=== PATIENT | male | born 1965 | race Hispanic/Latino ===

== ENCOUNTER 2022-08-08 14:59 | Outpatient (CLI) | payer MEDICAID, SELFPAY ==
--- NOTE | 2022-08-08 | ECG_ITS ---
Measurements Intervals [place] Rate: 80 P: 68 IA: 147 QRS: 15 QRSD: 98 T: 31 QT: 360 QTc: 417 Interpretive Statements SINUS RHYTHM EARLY PRECORDIAL R/S TRANSITION BORDERLINE ECG NO PREVIOUS ECG AVAILABLE FOR COMPARISON Electronically Signed On 08-08-2022 15:46:16 CDT by Layton Love D.O.
--- NOTE | ~2022-08-08 | XR_ITS ---
EXAMINATION: XR chest 2V 08/08/2022 15:27 INDICATION: Chest pain and shortness of breath PROCEDURE: 2 view chest COMPARISON: 07/27/2012 FINDINGS: The lungs are clear. The cardiomediastinal silhouette is within normal limits. There are no pleural effusions. There is no pneumothorax suspected. IMPRESSION: 1: NO ACUTE CARDIOPULMONARY DISEASE. Reviewed, dictated and finalized at location B.
== END 2022-08-08 15:00 | disposition home or self-care (01) ==
LOC: ANHIMG 15:04
PROVIDERS: PCP Physician Assistant; Visit Provider Physician Assistant
DX: R07.9 Chest pain, unspecified (principal)
CPT/HCPCS: 71046; 93005

== ENCOUNTER 2022-10-04 15:49 | Outpatient (CLI) | payer MEDICAID, SELFPAY ==
--- NOTE | ~2022-10-04 | XR_ITS ---
XR shoulder RT min 2V DATE: 10/04/2022 16:08 INDICATION: Right shoulder pain after fall one year ago TECHNIQUE: 4 views COMPARISON: None FINDINGS: There is degenerative spurring of the right acromioclavicular joint. No fracture or disloca tion, periosteal reaction or bone destruction or significant abnormal soft tissue calcification of th e right shoulder is detected. There is degenerative spurring and mild dextro scoliosis of the thoracic spine. IMPRESSION: Degenerative change at right acromioclavicular joint Reviewed, dictated and finalized at location A.
== END 2022-10-04 15:50 | disposition home or self-care (01) ==
LOC: ANHIMG 15:53
PROVIDERS: PCP Physician Assistant; Visit Provider Physician Assistant
DX: M19.011 Primary osteoarthritis, right shoulder (principal)
CPT/HCPCS: 73030

== ENCOUNTER 2022-11-14 07:32 | Outpatient (CLI) | payer MEDICAID, SELFPAY ==
--- NOTE | 2022-11-14 07:35 | EST_ITS ---
Patient Info Name: Norberto Fontenot Age: 56 years : 1965 Gender: Male Ht: 69 in Wt: 192 lbs BSA: 2.08 m2 Exam Date: 11/14/2022 8:15 AM Exam Location: [facility] Stress Patient Status: Outpatient Admit Date: 11/14/2022 Staff Ordering Physician: Layton Love DO Attending Provider: Layton Love DO Exercise Technologist: Yani Orr RDCS Exercise Physician: Layton Love DO Exam Type: CA stress test treadmill Study Info Indications R07.9 - Chest pain, unspecified A treadmill exercise stress test was performed. Summary 1. 1. Negative Ranjeet exercise stress test for ischemic ST changes by ECG criteria. 2. 2. Good functional capacity, achieving 12 METs of workload. 3. 3. Appropriate HR response to exercise. 4. 4. Appropriate HR recovery at 1 minute post exercise. 5. 5. No imaging with stress testing. 6. 6. Patient informed of the above results. Protocol: Ranjeet Stress ECG Details Stage: REST Duration (min): 1 min : 10 sec Speed (mph): 0.0 Grade (%): 0 HR (bpm): 76 SBP (mmHg): 115 DBP (mmHg): 76 METS: --- Stage: REST Duration (min): 5 min : 8 sec Speed (mph): 0.0 Grade (%): 0 HR (bpm): 77 SBP (mmHg): 115 DBP (mmHg): 76 METS: --- Stage: STAGE 1 Duration (min): 1 min : 0 sec Speed (mph): 1.7 Grade (%): 10 HR (bpm): 91 SBP (mmHg): 115 DBP (mmHg): 76 METS: --- Stage: STAGE 1 Duration (min): 2 min : 0 sec Speed (mph): 1.7 Grade (%): 10 HR (bpm): 94 SBP (mmHg): 115 DBP (mmHg): 76 METS: --- Stage: STAGE 1 Duration (min): 3 min : 0 sec Speed (mph): 1.7 Grade (%): 10 HR (bpm): 98 SBP (mmHg): 107 DBP (mmHg): 64 METS: --- Stage: STAGE 2 Duration (min): 1 min : 0 sec Speed (mph): 2.5 Grade (%): 12 HR (bpm): 102 SBP (mmHg): 107 DBP (mmHg): 64 METS: --- Stage: STAGE 2 Duration (min): 2 min : 0 sec Speed (mph): 2.5 Grade (%): 12 HR (bpm): 104 SBP (mmHg): 125 DBP (mmHg): 52 METS: --- Stage: STAGE 2 Duration (min): 3 min : 0 sec Speed (mph): 2.5 Grade (%): 12 HR (bpm): 109 SBP (mmHg): 125 DBP (mmHg): 52 METS: --- Stage: STAGE 3 Duration (min): 1 min : 0 sec Speed (mph): 3.4 Grade (%): 14 HR (bpm): 117 SBP (mmHg): 132 DBP (mmHg): 56 METS: --- Stage: STAGE 3 Duration (min): 2 min : 0 sec Speed (mph): 3.4 Grade (%): 14 HR (bpm): 121 SBP (mmHg): 132 DBP (mmHg): 56 METS: --- Stage: STAGE 3 Duration (min): 3 min : 0 sec Speed (mph): 3.4 Grade (%): 14 HR (bpm): 126 SBP (mmHg): 157 DBP (mmHg): 58 METS: --- Stage: STAGE 4 Duration (min): 1 min : 0 sec Speed (mph): 4.2 Grade (%): 16 HR (bpm): 141 SBP (mmHg): 157 DBP (mmHg): 58 METS: --- Stage: STAGE 4 Duration (min): 1 min : 1 sec Speed (mph): 4.2 Grade (%): 16 HR (bpm): 141 SBP (mmHg): 157 DBP (mmHg): 58 METS: --- Stage: RECOVERY Dura
--- NOTE | 2022-11-14 07:35 | ECHO_ITS ---
Patient Info Name: Norberto Fontenot Age: 56 years : 1965 Gender: Male Ht: 69 in Wt: 192 lbs BSA: 2.08 m2 HR: 69 bpm BP: 115 / 76 mmHg Technical Quality: Good Exam Date: 11/14/2022 7:51 AM Exam Location: [facility] Patient Status: Outpatient Admit Date: 11/14/2022 Staff Ordering Physician: Layton Love DO Stretcher Drier Operator: Yani Orr RDCS Attending Provider: Layton Love DO Referring Physician: Ivan DURHAM; Exam Type: CA echo doppler color flow Study Info Indications R06.09 - Other forms of dyspnea Complete two-dimensional, color flow and Doppler transthoracic echocardiogram is performed. Summary 1. Complete two-dimensional, color flow and Doppler transthoracic echocardiogram is performed. 2. Left ventricular chamber dimension is normal. 3. Left ventricular systolic function is normal, estimated at 55-60%. 4. The left ventricular diastolic function is normal. 5. E/e' 6 is not elevated. 6. Global longitudinal strain is abnormal at -15.7%. 7. Left atrial chamber dimension is mildly enlarged. 8. No pulmonary hypertension, estimated pulmonary arterial systolic pressure is 23 mmHg. Left Ventricle E/e' 6 is not elevated. Global longitudinal strain is abnormal at -15.7%. Left ventricular chamber dimension is normal. Left ventricular systolic function is normal, estimated at 55-60%. The left ventricular diastolic function is normal. Right Ventricle Right ventricular chamber dimension is normal. Right ventricular systolic function is normal. Left Atria Left atrial chamber dimension is mildly enlarged. Right Atria Right atrial chamber dimension is normal. Aortic Valve The aortic valve is trileaflet. There is no aortic valve stenosis. There is no aortic valve regurgitation. Pulmonic Valve There is no pulmonic regurgitation. Mitral Valve There is no mitral valve stenosis. There is no mitral valve regurgitation. Tricuspid Valve There is no tricuspid valve regurgitation. No pulmonary hypertension, estimated pulmonary arterial systolic pressure is 23 mmHg. Pericardium/Pleural There is no pericardial effusion. Inferior Vena Cava Normal inferior vena cava with >50% collapse upon inspiration consistent with normal right atrial pressure, 5 mmHg. Aorta The aortic root size at the sinus of Valsalva is normal. Left Ventricular Outflow Tract Name Value Normal LVOT 2D LVOT Diameter 2.1 cm LVOT Doppler LVOT Peak Gradient 3 mmHg LVOT Mean Gradient 2 mmHg LVOT VTI 18 cm LVOT VTI/AV VTI Ratio 0.9 LVOT Stroke Volume 64 ml LVOT CO 4.6 l/min LVOT CI 2.2 l/min/m2 Pulmonic Valve Name Value Normal RVOT Doppler RVOT Peak Gradient 2 mmHg PV Doppler
== END 2022-11-14 07:33 | disposition home or self-care (01) ==
LOC: ANHCARD 07:33
PROVIDERS: PCP Physician Assistant; Visit Provider Internal Medicine Cardiovascular Disease
DX: R07.9 Chest pain, unspecified (principal)
CPT/HCPCS: 93017; 93306

== ENCOUNTER 2023-02-15 16:00 | Emergency (ER) | payer MEDICAID, SELFPAY ==
--- NOTE | ~2023-02-15 | XR_ITS ---
EXAM: XR shoulder RT min 2V DATE: 02/15/2023 16:54 HISTORY: shoulder pain AFTER MOVING FURNITURE . COMPARISON: 10/04/2022. FINDINGS: Normal mineralization. No fracture or dislocation. No lytic or blastic lesion. Moderate AC joint and mild glenohumeral joint osteoarthritis. No erosion or periosteal change. Soft tissues with in normal limits. IMPRESSION: No acute osseous finding in the right shoulder. Reviewed, dictated and finalized at location K. E SHOW MANAGER
[2023-02-15 16:02] VITALS: BP 165/84; PULSE 85; RESP 18; TEMP 36.2; O2SAT 100
[2023-02-15 16:13] VITALS: BP 145/81; PULSE 89; RESP 18; O2SAT 95
--- NOTE | 2023-02-15 17:28 | ED.UPPEXIN ---
HPI - Extremity Injury (Upper) General Chief Complaint: Extremity Injury, Upper Stated Complaint: right shoulder pain Time Seen by Provider: 02/15/23 17:07 Source: patient Mode of arrival: ambulatory Limitations: no limitations History of Present Illness HPI narrative: This is a 57 year old male that presents to the ER for right shoulder pain after a lifting injury today. Reports he has been having trouble with his right shoulder over the last several months. Recently underwent physical therapy. His shoulder was a little more sore than usual when he woke up today. He was moving some furniture and felt a pop in his shoulder. Reports decreased ROM due to pain. Denies numbness or weakness. Related Data Home Medications Medication Instructions Recorded Confirmed aspirin 81 mg tablet,delayed 81 mg PO DAILY 10/06/22 10/10/22 release atorvastatin 40 mg tablet 40 mg PO DAILY 10/06/22 10/10/22 blood sugar diagnostic ([facility] 10/06/22 10/10/22 Verio test strips) blood-glucose meter ([facility] 10/06/22 10/10/22 Verio Flex Meter) blood-glucose meter,continuous 10/06/22 10/10/22 (Dexcom G6 Animal Cop) empagliflozin 25 mg tablet 25 mg PO DAILY 10/06/22 10/10/22 (Jardiance) lancets 33 gauge ([facility]/06/[facility] 10/10/22 Plus Lancet) liraglutide 0.6 mg/0.1 mL (18 mg/3 0.6 mg subcut DAILY 10/06/22 10/10/22 mL) subcutaneous pen injector (Victoza 3-Soto) lisinopril 20 1 tablet PO DAILY 10/06/22 10/10/22 mg-hydrochlorothiazide 12.5 mg tablet testosterone cypionate 200 mg/mL 200 mg IM ONCE 10/06/22 10/10/22 intramuscular oil Allergies Allergy/AdvReac Type Severity Reaction Status Date / Time No Known Allergies Allergy Mild Verified 02/15/23 16:14 Review of Systems Review of Systems: CONSTITUTIONAL: Denies fever MUSCULOSKELETAL: Reports joint pain, and myalgia. NEUROLOGIC: Denies numbness, or weakness. All systems reviewed & are unremarkable except as noted in HPI and below PMFSH Past Medical History Medical History (Updated 02/15/23 @ 17:29 by Meme Dunham PA-C) Allergy Backache Dyspnea Dysuria Erectile dysfunction High cholesterol Hyperlipidemia Kidney stone Multiple joint pain Noncompliance with treatment Persistent hematuria Phimosis Screening for malignant neoplasm of prostate Upper respiratory infection Urethritis Surgical History Surgical History H/O circumcision Social History Social History Social History: Lives with and children Smoking status: Former smoker Tobacco type: cigarettes Education: High School Diploma/GED Occupation/Education: occupation Additional occupation/education comments: Cook Gender identity (if verbalized by the patient): Male Sexual Orientation (if Verbalized by the Patient): Straight or Heterosexual Exam Narrative: GENERAL: Well-appearing, well-nourished, and in no acute distress. HEAD: Normocephalic, atraumatic. EYES: EOMI. EXTREMITIES: Decreased active range of motion above 90 degrees due to pain. No edema or obvious deformity. Normal radial pulse. Normal sensation SKIN: Warm, dry, no rash. NEURO: No focal deficits. Alert and oriented x3. PSYCH: Normal mood and affect Course Course Emergency Course: Patient updated on workup and agrees with plan of care Vital Signs Vital signs: Vital Signs Temperature 97.2 F L 02/15/23 16:02 Pulse Rate 85 02/15/23 16:02 Respiratory Rate 18 02/15/23 16:02 Blood Pressure 165/84 H 02/15/23 16:02 Pulse Oximetry 100 02/15/23 16:02 Oxygen Delivery Room Air 02/15/23 16:02 Temperature 97.2 F L 02/15/23 16:02 Pulse Rate 89 02/15/23 16:13 Respiratory Rate 18 02/15/23 16:13 Blood Pressure 145/81 H 02/15/23 16:13 Pulse Oximetry 95 02/15/23 16:13 Oxygen Delivery Room Air 02/15/23 16:02 MDM - Extremity Injury (U
[2023-02-15] MEDS: ACETAMINOPHEN 500 MG TABLET 1000 MG PO (18:48)
[2023-02-15] MEDS: KETOROLAC 30 MG/ML VIAL (*BKC) IM (18:49)
[2023-02-15 18:56] VITALS: BP 142/89; PULSE 82; O2SAT 97
== END 2023-02-15 18:55 | disposition home or self-care (01) ==
PROVIDERS: Emergency Provider Physician Assistant; PCP Physician Assistant
DX: S43.401A Unspecified sprain of right shoulder joint, initial encounter (principal); E78.00 Pure hypercholesterolemia, unspecified; Z87.442 Personal history of urinary calculi; Z87.891 Personal history of nicotine dependence; Z79.82 Long term (current) use of aspirin; Z79.85 Long-term (current) use of injectable non-insulin antidiabetic drugs; X50.0XXA Overexertion from strenuous movement or load, initial encounter
CPT/HCPCS: 73030; 96372; 99283; A4565; A9270; J1885

== ENCOUNTER 2023-07-11 15:25 | Outpatient (CLI) | payer OTHER, SELFPAY ==
--- NOTE | 2023-07-11 | ECG_ITS ---
SEE SCANNED COPY FOR CONFIRMED REPORT MTDD
--- NOTE | ~2023-07-11 | XR_ITS ---
EXAMINATION: XR chest 2V 07/11/2023 15:55 INDICATION: Preprocedural examination. PROCEDURE: 2 view chest COMPARISON: Chest x-ray report dated 08/08/2022 FINDINGS: The lungs are clear. The cardiomediastinal silhouette is within normal limits. There are no pleural effusions. There is no pneumothorax suspected. IMPRESSION: 1: NO ACUTE CARDIOPULMONARY DISEASE. Reviewed, dictated and finalized at location B.
== END 2023-07-11 15:26 | disposition home or self-care (01) ==
PROVIDERS: PCP Physician Assistant; Visit Provider Physician Assistant
DX: Z01.818 Encounter for other preprocedural examination (principal)
CPT/HCPCS: 71046; 93005

== ENCOUNTER 2023-11-06 06:22 | Emergency (ER) | payer OTHER, SELFPAY ==
--- NOTE | ~2023-11-06 | CT_ITS ---
EXAMINATION: CTA chest DATE: 11/06/2023 07:34 INDICATION: Dyspnea. TECHNIQUE: Computed tomographic angiography (CTA) of the chest was performed with 100 mL Omnipaque-35 0 intravenous contrast. Automated exposure control and iterative reconstruction technique were employ ed. The dose-length product was 767.44 mGy-cm. Maximum intensity projection 3D-reconstructions of the aorta and other arteries were constructed by the technologist on a separate workstation. COMPARISON: Chest 2 views 11/06/2023 FINDINGS: There are airspace and groundglass opacities in left lower lobe, consistent with pneumonia. There is mild atelectasis in right lower lobe. No pleural effusion. The heart size is normal. No per icardial effusion. There is no pulmonary embolus. Thoracic aorta is normal. There is mild left hilar lymphadenopathy, likely reactive. There is a 5.0 cm cyst in right kidney. There is 6 mm and 13 mm sto tanmay in right kidney. There is mild thoracic spondylosis. IMPRESSION: 1. Left lower lobe pneumonia. 2. Mild left hilar lymphadenopathy, likely reactive. 3. Normal thoracic aorta. Reviewed, dictated and finalized at location A.
--- NOTE | ~2023-11-06 | XR_ITS ---
EXAMINATION: XR chest 2V DATE: 11/06/2023 06:51 INDICATION: Shortness of breath. Chest pain with breathing. TECHNIQUE: Frontal and lateral views of the chest were obtained. COMPARISON: Chest 2 views 07/11/2023 FINDINGS: There are left lower lobe airspace opacities. No pleural effusion or pneumothorax. The hear t size is normal. There is an old healed left rib fracture. IMPRESSION: 1. Left lower lobe airspace opacities, consistent with pneumonia. Reviewed, dictated and finalized at location A.
[2023-11-06 06:29] VITALS: BP 131/74; PULSE 88; RESP 19; TEMP 36.7; O2SAT 94
[2023-11-06 06:35] VITALS: PULSE 83; RESP 22; O2SAT 100
[2023-11-06 06:36] VITALS: O2SAT 93
--- NOTE | 2023-11-06 06:37 | PC.NURSE ---
Per patient his surgery was done by Dr.Benjamin Torres with [facility].
[2023-11-06 07:10] LABS: Basophils Percent Auto 0.4 % (0.2-1.2); Eosinophils Absolute Auto 0.1 K/mm3 (0-0.3); Eosinophils Percent Auto 1.4 % (0-4.4); Hematocrit 38.2 % (42.0-52.0); Hemoglobin 12.8 g/dL (14.0-18.0); Immature Granulocyte Absolute 0.03 K/mm3 (0.00-0.031); Immature Granulocyte Percent A 0.3 % (0-0.5); Lymphocytes Absolute Auto 1.23 K/mm3 (0.9-3.2); Mean Corpuscular HGB Conc 33.5 g/dl (32-36); Mean Corpuscular Hemoglobin 29.9 pg (26-34); Mean Corpuscular Volume 89.3 fl (80-100); Mean Platelet Volume 10.2 fl (7.4-10.4); Monocytes Absolute Auto 0.9 K/mm3 (0.1-0.6); Monocytes Percent Auto 9.8 % (2.6-8.5); Neutrophils Absolute Auto 7.1 K/mm3 (1.3-6.7); Neutrophils Percent Auto 75.1 % (45.5-73.1); Platelet Count Result 279 k/mm3 (150-375); Red Blood Count 4.28 M/mm3 (4.6-6.20); Red Cell Distribution Width 12.8 % (11.5-14.5); White Blood Count 9.5 K/mm3 (4.5-10.0)
[2023-11-06 07:13] LABS: Alanine Aminotransferase 29 U/L (6-50); Alkaline Phosphatase 120 U/L (38-126); Anion Gap 13 mmol/L (4-12); Aspartate Amino Transferase 27 U/L (17-59); Bilirubin,Total 0.8 mg/dL (0.2-1.3); Blood Urea Nitrogen 16 mg/dL (9-20); Calcium 9.1 mg/dL (8.4-10.2); Carbon Dioxide 26 mmol/L (22-30); Chloride 98 mmol/L (98-107); Estimated CRCL calculation 81 ml/min; Estimated Glomerular Filt Rate > 60; Glucose 154 mg/dL (65-110); Potassium 4.3 mmol/L (3.4-5.0); Sodium 137 mmol/L (137-145)
[2023-11-06 07:38] LABS: Influenza A QL RT-PCR Negative (Negative); Influenza B QL RT-PCR Negative (Negative); RSV RNA, RT-PCR Negative (Negative); SARS-CoV-2 RNA PCR Negative (Negative)
[2023-11-06 07:41] VITALS: BP 142/77; PULSE 85; RESP 15; O2SAT 98
--- NOTE | 2023-11-06 07:49 | ED.SOB ---
HPI - SOB/Dyspnea General Chief Complaint: Shortness of Breath/Dyspnea Stated Complaint: shortness of breath Time Seen by Provider: 11/06/23 07:01 History of Present Illness HPI Narrative: Pt presents with SOB over last several days. Pt had surgery on right shoulder earlier this month. Pt has had chills and sweats for the last few days and felt warm but not sure if fever. Pt developed cough last day or so. Pt denies CP. Related Data Home Medications Medication Instructions Recorded Confirmed aspirin 81 mg tablet,delayed 81 mg PO DAILY 10/06/22 10/10/22 release atorvastatin 40 mg tablet 40 mg PO DAILY 10/06/22 10/10/22 blood sugar diagnostic ([facility] 10/06/22 10/10/22 Verio test strips) [facility] 10/[facility] 10/10/22 Verio Flex Meter) blood-glucose meter,continuous 10/06/22 10/10/22 (Dexcom G6 Senior Application Software Engineer) empagliflozin 25 mg tablet 25 mg PO DAILY 10/06/22 10/10/22 (Jardiance) lancets 33 gauge ([facility] 10/06/22 10/10/22 Plus Lancet) liraglutide 0.6 mg/0.1 mL (18 mg/3 0.6 mg subcut DAILY 10/06/22 10/10/22 mL) subcutaneous pen injector (Victoza 3-Soto) lisinopril 20 1 tablet PO DAILY 10/06/22 10/10/22 mg-hydrochlorothiazide 12.5 mg tablet testosterone cypionate 200 mg/mL 200 mg IM ONCE 10/06/22 10/10/22 intramuscular oil Allergies Allergy/AdvReac Type Severity Reaction Status Date / Time No Known Allergies Allergy Mild Verified 11/06/23 06:33 Review of Systems Review of Systems: All systems reviewed & are unremarkable except as noted in HPI and below PMFSH Past Medical History Medical History (Updated 11/06/23 @ 08:24 by Mimi Bolton III, DO) Allergy Backache Dyspnea Dysuria Erectile dysfunction High cholesterol Hyperlipidemia Kidney stone Multiple joint pain Noncompliance with treatment Persistent hematuria Phimosis Screening for malignant neoplasm of prostate Upper respiratory infection Urethritis Surgical History Surgical History H/O circumcision Social History Social History Social History: Lives with and children Smoking status: Former smoker Tobacco type: cigarettes Education: High School Diploma/GED Occupation/Education: occupation Additional occupation/education comments: [employer] Gender identity (if verbalized by the patient): Male Sexual Orientation (if Verbalized by the Patient): Straight or Heterosexual Exam Const: General: healthy appearing and no acute distress Nutritional Appearance: well nourished Orientation/consciousness: patient oriented x3 Limitations: no limitations HENMT: Head: normal to inspection Mouth: Yes Normal oral and palatal mucosa present Throat: posterior oropharynx normal Eyes: Conjunctivae: conjunctivae normal Pupils: Equal, round and reactive pupils present EOM: EOMs intact bilaterally Direct Ophthalmoscopy: no photophobia Neck: Neck: normal visual inspection and no lymphadenopathy Chest: Chest palpation & inspection: normal inspection of the chest Resp: Effort & Inspection: normal respiratory effort Auscultation: clear to auscultation bilaterally Cardio: Rate: regular rate Rhythm: regular rhythm GI: GI Palp: Yes Soft to palpation and No Tenderness to palpation present (GI) Auscultation: normal bowel sounds Back/Spine/Pelvis: Back: no CVA tenderness Skin: General skin exam: normal color Rashes: no rashes Wounds: no wounds Neuro: General: patient oriented x3, moves all extremities, no meningeal signs, no focal motor deficits and CN's II-XI intact bilaterally Cranial nerves: Yes Nystagmus not present Speech: normal speech Extrem: General: normal to inspection and no clubbing, cyanosis or edema Psych: Mental Status: mental status grossly normal Affect: normal affect Attitude: cooperative Course Vital Signs Vital signs: Vital Signs Te
[2023-11-06] MEDS: AZITHROMYCIN 500 MG/NS 250 ML 500 MG/250 ML BAG 250 MG IVPB (07:58)
[2023-11-06 09:16] VITALS: BP 124/79; PULSE 82; RESP 24; TEMP 36.6; O2SAT 96
== END 2023-11-06 09:18 | disposition home or self-care (01) ==
PROVIDERS: Emergency Medicine; Emergency Provider Emergency Medicine; PCP Physician Assistant
DX: J18.9 Pneumonia, unspecified organism (principal); Z20.822 Contact with and (suspected) exposure to COVID-19; E78.00 Pure hypercholesterolemia, unspecified; Z87.442 Personal history of urinary calculi; Z87.891 Personal history of nicotine dependence; Z79.85 Long-term (current) use of injectable non-insulin antidiabetic drugs; Z79.82 Long term (current) use of aspirin; Z79.84 Long term (current) use of oral hypoglycemic drugs
CPT/HCPCS: 36415; 71046; 71275; 80053; 85025; 87040; 87637; 96365; 96367; 99284; J0456; J0696; Q9967

== ENCOUNTER 2024-03-06 14:45 | Outpatient (RCR) | payer OTHER, SELFPAY ==
[2023-12-15 14:35] VITALS: BP_SYST 80
--- NOTE | 2023-12-15 15:33 | OPREHPOC ---
Outpatient Therapy Plan of Care This is a Multidisciplinary Plan of Care that may contain components documented by all disciplines (PT, OT, and ST.) PT Problem 1 PT Problem #1 Knowledge Deficit PT Goal 1 Goal / Goal Update * indep with HEP * correct position of shoulder with exercises Target Visit 10 PT Problem 2 PT Problem #2 Pain PT Goal 1 Goal / Goal Update decrease pain of R shoulder, to improve use of arm 1* pain rating at worst of 4/10 2* self assessment Quick Dash rating of 60% limitation in activity level 3* pt report sleeping tolerance of 2 hours at time Target Visit 10 PT Problem 3 PT Problem #3 Impaired Strength PT Goal 1 Goal / Goal Update increase strength of R shoulder, to improve use of R arm for self care and light home activities: in standing x 5 reps: 1* flexion to 100' 2* abduction to 100' 3* ER- reach to back of head, palm to back of head 4* IR- reach behind back, palm to waist Target Visit 10
--- NOTE | 2023-12-15 15:34 | PTOPEVAL1 ---
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; owns the restraunt, went in to check in on things only; from -- doing pendulum and elbow, hand exercises had PT before surgery for shoulder and it was not getting any better- so had surgery; having problems with sleeping due to shoulder pain is not using his R arm, been resting it in the sling until few days ago; Reported Pain Level Pain Score Self Report Additional Pain Score Comments pain range in the past few days -11/03; sore, sharp and pain over mid deltoid, anterior and posterior shoulder; with sleeping: about every 30 minutes wake up; problems getting comfortable to fall asleep; is sleeping in the bed- initially in recliner; decrease pain: change positions, use ice PRN; taking over the counter meds; Assessment PT Clinical Summary Norberto is s/p R rotator cuff surgery with bicep tendon repair on 10-26-23. He is R hand dominant and the sling was used until few days ago. He has problems with sleeping and at this last dr randhawa, sling was removed and he received orders to start therapy. Quick Dash self assessment rating of 75% limitation in activity level. 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 With the evaluation, he has decreased strength and ROM of R shoulder; elbow, wrist and hand ranges are WNL and not painful. Skilled PT services are indicated for modalities to decrease pain, therapeutic exercises per protocol--phase 2 NO strengthening of shoulder- see order; education for posture and HEP. Plan of Care Interventions Electrical Stimulation,Hot Pack/Cold Pack,Manual Therapy,Neuro Re-education,Patient/Caregiver Education,Therapeutic Activities,Therapeutic Exercise,Ultrasound,Other Other Interventions taping PT Services Indicated Yes Treatment Frequency and 2x/wk for 10 visits Duration These treatments will address the objective and functional deficits as defined above. The patient will be advanced safely and appropriately in order for the patient to progress towards his/her prior level of function. Additional exercises will be introduced and as well as a comprehensive home exercise program upon discharge, if needed, ?to ensure carryover of functional gains achieved in the clinic. This treatment plan has been reviewed and agreement upon by the patient.
[2024-01-16 15:25] VITALS: BP_SYST 90
--- NOTE | 2024-01-16 16:21 | OPREHPOC ---
Outpatient Therapy Plan of Care This is a Multidisciplinary Plan of Care that may contain components documented by all disciplines (PT, OT, and ST.) PT Problem 1 PT Problem #1 Knowledge Deficit PT Goal 1 Goal / Goal Update * indep with HEP * correct position of shoulder with exercises Target Visit 10 Progress Met PT Goal 2 Goal / Goal Update 01-16-24 progress goals met continue to progress HEP and education Target Visit 20 PT Problem 2 PT Problem #2 Pain PT Goal 1 Goal / Goal Update decrease pain of R shoulder, to improve use of arm 1* pain rating at worst of 4/10 2* self assessment Quick Dash rating of 60% limitation in activity level 3* pt report sleeping tolerance of 2 hours at time Target Visit 10 Progress Met PT Goal 2 Goal / Goal Update 01-16-24 progress goals met; NEW goals: 1* pt report pain at worst of 2/10 with increased activity 2* pt report sleeping tolerance of 4 hours 3* self assessment with Quick DASH rating of 30% limitation in activity level Target Visit 20 PT Problem 3 PT Problem #3 Impaired Strength PT Goal 1 Goal / Goal Update increase strength of R shoulder, to improve use of R arm for self care and light home activities: in standing x 5 reps: 1* flexion to 100' 2* abduction to 100' 3* ER- reach to back of head, palm to back of head 4* IR- reach behind back, palm to waist Target Visit 10 Progress Partially Met PT Goal 2 Goal / Goal Update 01-16-24 progress goals 1,3 met; improved with others, but not achieved initiate strengthening when dr orders received in standing x 5 reps R UE: 1* shoulder flexion to 120' with 3# hand weight 2* elbow flexion/extension with 10# hand weight 3* bilateral UE lifting of box, waist/ floor height: 30# x 3 reps PT Problem 4 PT Problem #4 Impaired Range of Motion PT Goal 1 Goal / Goal Update increase R shoulder active ROM in standing, to improve use of R UE for home and work tasks: 1* flexion to 140' 2* abduction to 110' 3* IR- reach behind back, palm to above waist Target Visit 20
--- NOTE | 2024-01-16 16:21 | PTOPPROG ---
Assessment and note entered by Nirmala Pozo, PT Progress Report Assessment Status Progress Diagnosis R rotator cuff repair with open bicep repair ICD-10 Condition Codes (PT) M25.511,Z47.89 Onset 10-26-23 Subjective Information shoulder is much better--able to move my arm better; using arm with light home activities; return to light working, 4-5 hours for 4 days a week, went back about 2 weeks ago; has dr appointment beginning of January- either or ; PAIN: range in the past week; 0-2/10; sore over shoulder decrease pain: rest, hold arm, increase pain: using arm, reaching arm up, move arm quickly, stay in one position too long have not used ice- reinforced PRN use have not been taking any pain meds report sleeping tolerance of 2 hours at time; best position on L side with R arm on pillow Assessment PT Clinical Summary Norberto has received 10 PT sessions. He has improved in all areas since the initial eval: pain from 3-8/10 to 0-2/10; Self assessment with Quick DASH from 75% to 45% limitation in activity level; improved reported sleeping tolerance from 30 minutes to 2 hours at time; has returned to light work, 4-5 hours at time; R shoulder: AROM in standing /passive in supine: flexion 105/140'; abduction 85'/90'; active in standing: IR- reach behind back, fingers to sacrum ER- palm to back of head The goals have been partially achieved. Continue PT per orders. Await orders to begin strengthening at pt next dr appt. Plan of Care Interventions Electrical Stimulation,Hot Pack/Cold Pack,Manual Therapy,Neuro Re-education,Patient Education,Therapeutic Activities,Therapeutic Exercise,Ultrasound,Other Other Interventions taping PT Services Indicated Yes Treatment Frequency and 1-2x/wk for 10 visits Duration These treatments will address the objective and functional deficits as defined above. The patient will be advanced safely and appropriately in order for the patient to progress towards his/her prior level of function. Additional exercises will be introduced and as well as a comprehensive home exercise program upon discharge, if needed, ?to ensure carryover of functional gains achieved in the clinic. This treatment plan has been reviewed and agreement upon by the patient.
--- NOTE | 2024-02-05 15:38 | PCPTNOTE ---
Patient cancelled due to working out of town.
[2024-02-19 15:50] VITALS: BP_SYST 120
--- NOTE | 2024-02-19 16:29 | OPREHPOC ---
Outpatient Therapy Plan of Care This is a Multidisciplinary Plan of Care that may contain components documented by all disciplines (PT, OT, and ST.) PT Problem 1 PT Problem #1 Knowledge Deficit PT Goal 1 Goal / Goal Update * indep with HEP * correct position of shoulder with exercises Target Visit 10 Progress Met PT Goal 2 Goal / Goal Update 01-16-24 progress goals met continue to progress HEP and education --------- 02-19-24 progress goals met continue to progress Target Visit 27 PT Problem 2 PT Problem #2 Pain PT Goal 1 Goal / Goal Update decrease pain of R shoulder, to improve use of arm 1* pain rating at worst of 4/10 2* self assessment Quick Dash rating of 60% limitation in activity level 3* pt report sleeping tolerance of 2 hours at time Target Visit 10 Progress Met PT Goal 2 Goal / Goal Update 01-16-24 progress goals met; NEW goals: 1* pt report pain at worst of 2/10 with increased activity 2* pt report sleeping tolerance of 4 hours 3* self assessment with Quick DASH rating of 30% limitation in activity level --------- 02-19-24 progress goals met NEW GOALS: 1* pain rating at worst of 2/10 with strengthening progression Target Visit 27 PT Problem 3 PT Problem #3 Impaired Strength PT Goal 1 Goal / Goal Update increase strength of R shoulder, to improve use of R arm for self care and light home activities: in standing x 5 reps: 1* flexion to 100' 2* abduction to 100' 3* ER- reach to back of head, palm to back of head 4* IR- reach behind back, palm to waist Target Visit 10 Progress Partially Met PT Goal 2 Goal / Goal Update 01-16-24 progress goals 1,3 met; improved with others, but not achieved initiate strengthening when dr orders received in standing x 5 reps R UE: 1* shoulder flexion to 90' with 3# hand weight 2* elbow flexion/extension with 10# hand weight 3* bilateral UE lifting of box, waist/ floor height: 30# x 3 reps --------- 02-19-24 progress goals met NEW GOALS: R shoulder to 90', with 5 reps, hand weight: 1* flexion with 5# 2* scaption with 4# 3* bilateral UE box lift floor/waist height 40# x 3 reps Target Visit 27 PT Problem 4 PT Problem #4 Impaired Range of Motion PT Goal 1 Goal / Goal Update increase R shoulder active ROM in standing, to improve use of R UE for home and work tasks: 1* flexion to 140' 2* abduction to 110' 3* IR- reach behind back, palm to above waist Target Visit 20 Progress Not Met PT Goal 2 Goal / Goal Update --------- 02-19-24 progress goals not met continue towards Target Visit 27
--- NOTE | 2024-02-19 16:29 | PTOPPROG ---
Assessment and note entered by Nirmala Pozo, PT Progress Report Assessment Status progress Diagnosis R rotator cuff repair with open bicep repair ICD-10 Condition Codes (PT) M25.511,Z47.89 Onset 10-26-23 Subjective Information shoulder is better, but still need to get stronger have been doing the exercises at home; still having problems reaching behind his back, problems lifting coffee pot and pouring coffee. PAIN: range in the past few days 0-2/10; tight and sore increase pain: reaching behind back and out to the side decrease pain: rest, not taking any pain meds; is able to sleep 3-4 hours at time Assessment PT Clinical Summary Norberto has received a total of 19 PT sessions. Compared to the last reeval: pain decreased now to 0-2/10; reported sleeping tolerance improved to 3-4 hours at time; self assessment Quick DASH rating from 45 to 27% limitation in activity level ROM of R shoulder: active/passive: flexion 120'/ 155'; abduction 85'/ 120' standing active IR- reach behind back, palm to sacrum; ER- reach palm to back of head most pain with IR and abduction motions. Strength with hand weight x 5 reps: flexion to 90' with 4#; scaption to 90' with 3#; Bilateral UE box lift waist/floor height: 35# with good body mechanics. The goals were partially met. Continue PT to further increase strength of R shoulder for return to full work and home tasks. Plan of Care Interventions Electrical Stimulation,Hot Pack/Cold Pack,Manual Therapy,Neuro Re-education,Patient Education,Therapeutic Activities,Therapeutic Exercise,Ultrasound,Other Other Interventions taping PT Services Indicated Yes Treatment Frequency and 1-2x/wk for 8 visits Duration These treatments will address the objective and functional deficits as defined above. The patient will be advanced safely and appropriately in order for the patient to progress towards his/her prior level of function. Additional exercises will be introduced and as well as a comprehensive home exercise program upon discharge, if needed, ?to ensure carryover of functional gains achieved in the clinic. This treatment plan has been reviewed and agreement upon by the patient.
--- NOTE | 2024-02-19 16:31 | PCPTNOTE ---
pt was 20 min late for today reeval appt.
--- NOTE | 2024-03-07 16:52 | PCPTNOTE ---
Pt called to cancel his appointment today due to having too much to do.
--- NOTE | 2024-03-11 12:33 | PCPTNOTE ---
Continue PT treatment with new V#[id number].
== END 2024-03-11 11:09 | disposition home or self-care (01) ==
LOC: ANHPT 14:45
PROVIDERS: PCP Physician Assistant
DX: Z47.89 Encounter for other orthopedic aftercare (principal); M25.511 Pain in right shoulder
CPT/HCPCS: 97014; 97110; 97140; 97161; 97530; G0283

== ENCOUNTER 2024-04-01 13:15 | Outpatient (RCR) | payer OTHER, SELFPAY ==
[2024-03-11 11:09] VITALS: BP_SYST 120
--- NOTE | 2024-03-11 12:35 | PCPTNOTE ---
PT treatment is continued from previous V#[id number].
--- NOTE | 2024-03-18 16:06 | PCPTNOTE ---
Pt no showed visit today attempted to leave message but his phone does not take messages.
--- NOTE | 2024-03-28 16:24 | PCPTNOTE ---
Pt no call no showed his appointment today
[2024-04-01 13:03] VITALS: BP_SYST 125
--- NOTE | 2024-04-01 13:52 | OPREHPOC ---
Outpatient Therapy Plan of Care This is a Multidisciplinary Plan of Care that may contain components documented by all disciplines (PT, OT, and ST.) PT Problem 1 PT Problem #1 Knowledge Deficit PT Goal 1 Goal / Goal Update * indep with HEP * correct position of shoulder with exercises Target Visit 10 Progress Met PT Goal 2 Goal / Goal Update 01-16-24 progress goals met continue to progress HEP and education --------- 02-19-24 progress goals met continue to progress Target Visit 27 PT Problem 2 PT Problem #2 Pain PT Goal 1 Goal / Goal Update decrease pain of R shoulder, to improve use of arm 1* pain rating at worst of 4/10 2* self assessment Quick Dash rating of 60% limitation in activity level 3* pt report sleeping tolerance of 2 hours at time Target Visit 10 Progress Met PT Goal 2 Goal / Goal Update 01-16-24 progress goals met; NEW goals: 1* pt report pain at worst of 2/10 with increased activity 2* pt report sleeping tolerance of 4 hours 3* self assessment with Quick DASH rating of 30% limitation in activity level --------- 02-19-24 progress goals met NEW GOALS: 1* pain rating at worst of 2/10 with strengthening progression Target Visit 27 Progress Met PT Problem 3 PT Problem #3 Impaired Strength PT Goal 1 Goal / Goal Update increase strength of R shoulder, to improve use of R arm for self care and light home activities: in standing x 5 reps: 1* flexion to 100' 2* abduction to 100' 3* ER- reach to back of head, palm to back of head 4* IR- reach behind back, palm to waist Target Visit 10 Progress Met PT Goal 2 Goal / Goal Update 01-16-24 progress goals 1,3 met; improved with others, but not achieved initiate strengthening when dr orders received in standing x 5 reps R UE: 1* shoulder flexion to 90' with 3# hand weight 2* elbow flexion/extension with 10# hand weight 3* bilateral UE lifting of box, waist/ floor height: 30# x 3 reps --------- 02-19-24 progress goals met NEW GOALS: R shoulder to 90', with 5 reps, hand weight: 1* flexion with 5# 2* scaption with 4# 3* bilateral UE box lift floor/waist height 40# x 3 reps Target Visit 27 Progress Met PT Problem 4 PT Problem #4 Impaired Range of Motion PT Goal 1 Goal / Goal Update increase R shoulder active ROM in standing, to improve use of R UE for home and work tasks: 1* flexion to 140' 2* abduction to 110' 3* IR- reach behind back, palm to above waist Target Visit 20 Progress Met PT Goal 2 Goal / Goal Update --------- 02-19-24 progress goals not met continue towards Target Visit 27 Progress Met
--- NOTE | 2024-04-01 13:52 | PTOPDC ---
Assessment and note entered by Valeriy Perera, PT Evaluation Information Assessment Status Discharge Diagnosis R rotator cuff repair with open bicep repair ICD-10 Condition Codes (PT) Pain in right shoulder M25.511,Encounter for other orthopedic aftercare Z47.89 Onset 10-26-23 Subjective Information Reports that overall he is doing better. Reports that he is not having much pain at all this point and is much less stiff. Reports that he is doing majority of the things he wants to and all of the things that he needs to. Still feels some tightness in maximal reach over head and behind back. Understands [facility] to address this. Reported Pain Level Pain Score 0: Self Report Assessment PT Clinical Summary Patient has met all goals for therapy at this time and is suitable for discharge to [facility]. Showing some minor end range scapular tightness but not restrictive of ADLs. 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 Plan of Care PT Services Indicated Yes
== END 2024-04-02 12:17 | disposition home or self-care (01) ==
LOC: ANHPT 13:15
PROVIDERS: PCP Physician Assistant
DX: M25.511 Pain in right shoulder (principal); Z47.89 Encounter for other orthopedic aftercare
CPT/HCPCS: 97110; 97140; 97530

== ENCOUNTER 2024-07-01 11:42 | Outpatient (CLI) | payer OTHER, SELFPAY ==
[2024-07-01 13:10] LABS: Thyroid Stimulating Hormone 0.936 uIU/mL (0.465-4.680)
--- OUTSIDE RECORDS SUMMARY | 2024-07-01 13:36 | XMS_ITS | Clinical Summary ---
Author Organization [facility] Address [address] [place] [address] Care Team Providers Care Operator Lights Name Role Phone Silke Kang Primary Care Provider + Allergies No known active allergies Medications empagliflozin (Jardiance) 25 mg tabletIndicatio ns:type 2 diabetes mellitus Take 1 tablet (25 mg total) by mouth every morning Active semaglutide (RYBELSUS) 7 mg tabletIndicatio ns:type 2 diabetes mellitus Take 1 tablet (7 mg total) by mouth manager recruiting before breakfast Active atorvastatin (LIPITOR) 40 mg tabletIndicatio ns:hyperlipidem ia Take 1 tablet (40 mg total) by mouth nightly 2 Active lisinopriL (PRINIVIL,ZESTR IL) 10 mg tabletIndicatio ns:hypertension Take 1 tablet (10 mg total) by mouth every morning Active metFORMIN (GLUCOPHAGE) 1,000 mg tabletIndicatio ns:type 2 diabetes mellitus Take 1 tablet (1,000 mg total) by mouth 2 (two) times a day Active docusate sodium (COLACE) 100 mg capsuleIndicati ons:constipatio n Take 1 capsule (100 mg total) by mouth 2 (two) times a day for 5 days 10 capsule 4 Active docusate sodium (COLACE) 100 mg capsuleIndicati ons:constipatio n Take 1 capsule (100 mg total) by mouth 2 (two) times a day as needed for constipation (while taking narcotics) 30 capsule 1 4 Active oxyCODONE (ROXICODONE) 5 mg immediate release tabletIndicatio ns:Pain Take 1 tablet every 4 hours as needed for pain 30 tablet 4 Active Active Problems Problem Noted Date Diagnosed Date Tear of right rotator cuff 06/19/2023 Encounters Date Type Department Care Team Description 04/22/2024 8:00 AM NEUROLOGY NURSE Office Visit [facility] Orthopaedic Surgery [address] [place] [address] Raymundo Torres MD Tear of right rotator cuff, unspecified tear extent, unspecified whether traumatic (Primary Dx) from Last 3 Months Surgical History Surgery Date Site/Laterality Comments CIRCUMCISION 03/27/2019 - 03/26/2020 Medical History Medical History Date Comments HTN (hypertension) HLD (hyperlipidemia) Diabetes mellitus (HCC) Social History Tobacco Use Types Packs/Day Years Used Date Smoking Tobacco: Former Cigarettes 0.5 29 1 985 - 2013 Passive Smoke Exposure: Never Smokeless Tobacco: Never Tobacco Cessation:Counseling Given: Not Answered AUDIT-C Answer Date Recorded Q1: How often do you have a drink containing alc ohol? 2-4 times a month 10/12/2023 Q2: How many drinks containi ng alcohol do you have on a typical day when you are drinking? 1 or 2 10/12/2023 Q3: How often do you have si x or more drinks on one occasion? Never 10/12/2023 Personal Safety Answer Date Recorded Have you ever been in or are you currently in a harmful physical or emotional relationship or is someone making you feel afraid or unsafe? Denies 10/26/2023 Sex and Gender Information Value Date Recorded Sex Assigned at Not on file Legal Sex Male 2:54 AM NEUROLOGY NURSE Gender Identity Not on file Sexual Orientation Not on file Obstetrics History Last Filed Vital Signs Vital Sign Reading Time Taken Comments Blood Pressure 112/69 10/26/2023 1:10 PM CDT Pulse 71 10/26/2023 1:10 PM CDT Temperature 36.6 C (97.9 F) 10/26/2023 12:12 PM CDT Respiratory Rate 20 10/26/2023 1:10 PM CDT Oxygen Saturation 93% 10/26/2023 1:10 PM CDT Inhaled Oxygen Concentration - - Weight 87.1 kg (192 lb) 03/04/2024 7:55 AM NEUROLOGY NURSE Height 167.6 cm (5' 6 ) 10/26/2023 8:30 AM CDT Body Mass Index 30.99 10/26/2023 8:30 AM CDT Plan of Treatment Health Maintenance Due Date Last Done Comments Colon Cancer Screening-Colonoscopy 1967 Depression Screening 1967 Hepatitis C Screening 1965 Prostate Cancer Screening-PSA 1967 Hepatitis B Screening 12/15/1985 Regular Well Visit/Exam 18-64 12/15/1985 Zoster Vaccine (2 of 2) 06/20/2022 04/25/2022 Covid-19 Vaccine ( season) 2023 03/16/2023, 04/25/2022, 03/23/2021, Additional history exists Influenza Vaccine (#1) 2023 , 02/14/2022, 01/04/2021, Additional history exists DTaP/Tdap/Td Vaccine (2 - Td or Tdap) 04/13/2026 04/13/2016 Pneumococcal vaccine <65 Aged Out 04/13/2016 No longer eligible based on patient's age to complete this topic Medical Devices Implanted Type Area Basic Acoustic Analyst Device Identifier Shelf Expiration Date Model / Serial / Lot [employer] Corkscrew Suturetape 5.5mm 14.7mm Bioabsorbable Full Thread 1.3mm Ar-1927bct - [id number] Implanted:Qty: 1 on 10/26/2023 by Raymundo Torres MD at [facility] [place] Right: Shoulder [employer] 06/24/2025 AR-1927BCT / / [id number] Description:[employer] Cork screw Suturetape 5.5mm 14.7mm Bioabsorbable Full Thread 1.3mm AR-1927BCT - [id number] [employer] Corkscrew Suturetape 5.5mm 14.7mm Bioabsorbable Full Thread 1.3mm Ar-1927bct - [id number] Implanted:Qty: 1 on 10/26/2023 by Raymundo Torres MD at [facility] Right: Shoulder [employer] 06/24/2025 AR-1927BCT / / [id number] [employer] Corkscrew Suturetape 5.5mm 14.7mm Bioabsorbable Full Thread 1.3mm Ar-1927bct - [id number] Implanted:Qty: 1 on 10/26/2023 by Raymundo Torres MD at [facility] Right: Shoulder [employer] 06/24/2025 AR-1927BCT / / [id number] [employer] Swivelock C 4.75mm 19.1mm Closed Eyelet Vent [place] Suture Ar-2324bcc - [id number] Implanted:Qty: 1 on 10/26/2023 by Raymundo Torres MD at [facility] [place] Right: Shoulder [employer] 07/25/2027 AR-2324BCC / / [id number] Description:[employer] Swiv elock C 4.75mm 19.1mm Closed Eyelet Vent [place] Suture AR-2324BCC - [id number] [employer] Swivelock C 4.75mm 19.1mm Closed Eyelet Vent [place] Suture Ar-2324bcc - [id number] Implanted:Qty: 1 on 10/26/2023 by Raymundo Torres MD at [facility] [place] Right: Shoulder [employer] 07/25/2027 AR-2324BCC / / [id number] Description:[employer] Swiv elock C 4.75mm 19.1mm Closed Eyelet Vent [place] Suture AR-2324BCC - [id number] [employer] System Biceps [place] Slotted Drill Guide 1.9mm Drill [employer]ertak Ar-3670 - [id number] Implanted:Qty: 1 on 10/26/2023 by Raymundo Torres MD at [facility] [place] Right: Shoulder [employer] 07/24/2028 AR-3670 / / [id number] Insurance [facility] Care Teams Operator Lights Relationship Specialty Start Date End Date Silke Kang PA PCP - General Physician Motorboat Mechanic Helper 06/19/23
--- OUTSIDE RECORDS SUMMARY | 2024-07-01 13:37 | XMS_ITS | Referral Summary ---
Author Organization [facility] Address [address] [place] [address] Care Team Providers Care Rolling Machine Operator Automatic Name Role Phone Silke Kang Primary Care Provider + Encounters Date Type Department Care Team Description 04/22/2024 8:00 AM HOME HEALTH CAREGIVER Office Visit [facility] Orthopaedic Surgery [address] [place] [address] Raymundo Torres MD Tear of right rotator cuff, unspecified tear extent, unspecified whether traumatic (Primary Dx) from Last 3 Months Allergies No known active allergies Medications empagliflozin (Jardiance) 25 mg tabletIndicatio ns:type 2 diabetes mellitus Take 1 tablet (25 mg total) by mouth every morning Active semaglutide (RYBELSUS) 7 mg tabletIndicatio ns:type 2 diabetes mellitus Take 1 tablet (7 mg total) by mouth business administrator before breakfast Active atorvastatin (LIPITOR) 40 mg [...] Date Tear of right rotator cuff 06/19/2023 Social History Tobacco Use Types Packs/Day Years [...] on file Legal Sex Male 2:54 AM HOME HEALTH CAREGIVER Gender Identity Not on file Sexual Orientation Not on file Last Filed Vital Signs Vital Sign Reading Time Taken Comments Blood Pressure 112/69 10/26/2023 1:10 PM CDT Pulse 71 10/26/2023 1:10 PM CDT Temperature 36.6 C (97.9 F) 10/26/2023 12:12 PM CDT Respiratory Rate 20 10/26/2023 1:10 PM CDT Oxygen Saturation 93% 10/26/2023 1:10 PM CDT Inhaled Oxygen Concentration - - Weight 87.1 kg (192 lb) 03/04/2024 7:55 AM HOME HEALTH CAREGIVER Height 167.6 cm (5' 6 ) 10/26/2023 8:30 AM CDT Body Mass Index 30.99 10/26/2023 8:30 AM CDT Plan of Treatment Not on file Medical Devices Implanted Type Area Telephone Diaphragm Assembler Device Identifier Shelf Expiration Date Model / Serial / Lot [employer] Corkscrew Suturetape 5.5mm 14.7mm Bioabsorbable Full Thread 1.3mm Ar-1927bct - [id number] Implanted:Qty: 1 on 10/26/2023 by Raymundo Torres MD at [facility] [place] Right: Shoulder [employer] 06/24/2025 AR-1927BCT / / [id number] Description:[employer] Cork screw Suturetape 5.5mm 14.7mm Bioabsorbable Full Thread 1.3mm AR-1927BCT - [id number] [employer] Corkscrew Suturetape 5.5mm 14.7mm Bioabsorbable Full Thread 1.3mm Ar-1927bct - [id number] Implanted:Qty: 1 on 10/26/2023 by Raymundo Torres MD at [facility] Right: Shoulder [employer] 06/24/2025 AR-1927BCT / / [id number] [employer] Corkscrew Suturetape 5.5mm 14.7mm Bioabsorbable Full Thread 1.3mm Ar-1927bct - [id number] Implanted:Qty: 1 on 10/26/2023 by Raymundo Torres MD at [facility] [place] Right: Shoulder [employer] 06/24/2025 AR-1927BCT / / [id number] [employer] Swivelock C 4.75mm 19.1mm Closed Eyelet Vent [place] Suture Ar-2324bcc - [id number] Implanted:Qty: 1 on 10/26/2023 by Raymundo Torres MD at [facility] Right: Shoulder [employer] 07/25/2027 AR-2324BCC / / [id number] Description:[employer] Swiv elock C 4.75mm 19.1mm Closed Eyelet Vent [place] Suture AR-2324BCC - [id number] [employer] Swivelock C 4.75mm 19.1mm Closed Eyelet Vent [place] Suture Ar-2324bcc - [id number] Implanted:Qty: 1 on 10/26/2023 by Raymundo Torres MD at [facility] [place] Right: Shoulder [employer] 07/25/2027 AR-2324BCC / / [id number] Description:[employer] Swiv elock C 4.75mm 19.1mm Closed Eyelet Vent [place] Suture AR-2324BCC - [id number] [employer] System Biceps [place] Slotted Drill Guide 1.9mm Drill Fib[employer]ak Ar-3670 - [id number] Implanted:Qty: 1 on 10/26/2023 by Raymundo Torres MD at [facility] [place] Right: Shoulder [employer] 07/24/2028 AR-3670 / / [id number] Insurance [facility] Care Teams Rolling Machine Operator Automatic Relationship Specialty Start Date End Date Silke Kang PA PCP - General Physician Barkeeper 06/19/23
--- OUTSIDE RECORDS SUMMARY | 2024-07-01 13:37 | XMS_ITS | Clinical Summary ---
Author Organization [facility] Address [address] [place] [address] Care Team Providers Care Photographic Process Worker Name Role Phone Unavailable Primary Care Provider Unavailabl e Social History Tobacco Use Types Packs/Day Years Used Date Smoking Tobacco: Never Assessed Sex and Gender Information Value Date Recorded Sex Assigned at Not on file Legal Sex Male 7:40 PM CDT Gender Identity Not on file Sexual Orientation Not on file Plan of Treatment Health Maintenance Due Date Last Done Comments Colorectal Cancer Screening Colonoscopy (10 Years) 1967 Annual Physical 12/15/1970 Hepatitis C 12/15/1985 DTaP, Tdap and Td Vaccines ( 1 - Tdap) 12/15/1986 Hepatitis B Vaccines (1 of 3 - 19+ 3-dose series) 12/15/1986 Zoster Vaccines (1 of 2) 12/15/2017 COVID-19 Vaccine (2023-2 5 season) 2023 Meningococcal B Vaccine Aged Out No l onger eligible based on patient's age to complete this topic Meningococcal Vaccine Aged Out No ezra neil eligible based on patient's age to complete this topic Pneumococcal Vaccine: Pediat rics (0 to 5 Years) and At-Risk Patients (6 to 64 Years) Aged Out No longer eligible b ased on patient's age to complete this topic RSV Immunizations Under 20 Months Aged Out No longer eligible based on patient's age to complete this topic
== END 2024-07-01 11:43 | disposition home or self-care (01) ==
PROVIDERS: PCP Physician Assistant; Visit Provider Nurse Practitioner Family
DX: K59.00 Constipation, unspecified (principal); R10.9 Unspecified abdominal pain
CPT/HCPCS: 36415; 84443